=== PATIENT | male | born 1990 | race Caucasian/White ===

== ENCOUNTER 2020-01-02 10:04 | Emergency (ER) | payer BC, SELFPAY ==
[2020-01-02 10:18] VITALS: BP 156/103; PULSE 80; RESP 16; TEMP 36.8; O2SAT 98; BMI 27.1
[2020-01-02 11:02] LABS: Influenza A - CEPHEID Flu A NEGATIVE (NEGATIVE); Influenza B - CEPHEID Flu B NEGATIVE (NEGATIVE)
[2020-01-02 12:11] VITALS: BP 146/86; PULSE 82; RESP 18; O2SAT 98
--- NOTE | 2020-01-02 23:48 | ED.URI ---
HPI - URI/Sore Throat <JHONY Kirk - Last Filed: 01/02/20 23:59> General Chief Complaint: Upper Respiratory Symptoms Stated Complaint: cough fever Time Seen by Provider: 01/02/20 11:25 Source: patient Mode of arrival: Ambulatory Limitations: no limitations History of Present Illness HPI Narrative: This is a 29-year-old male, nonsmoker, who presents to ED with chief complain of 1 week duration of cough, feeling fatigued, runny nose but reports his symptoms are actually getting better. Patient reports now he has frequent but nonproductive cough which was from moist a few days ago. He denies fever, chills, short of breath, chest pain, nausea or vomiting. Patient had taken Tylenol at home for sore throat. Patient denies chronic medical illnesses. 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 Patient states he had visited [place] but no known contact with a person with Covid virus. Related Data Previous Rx's Medication Instructions Recorded albuterol sulfate 2 inhalation INHALATION Q4H PRN #1 01/02/20 each prednisone 40 mg PO DAILY #10 tab 01/02/20 Allergies Allergy/AdvReac Type Severity Reaction Status Date / Time No Known Drug Allergies Allergy Verified 01/02/20 10:18 Review of Systems <JHONY Kirk - Last Filed: 01/02/20 23:59> Review of Systems Narrative: General: Denies fever, chills, (+) fatigue, malaise, sweats. HEENT: Denies sinus pain, ear pain, (+) sore throat, difficulty swallowing, (+) rhinorrhea, dizziness. Respiratory: See HPI Cardiovascular: Denies chest pain, palpitations, orthopnea, edema. Gastrointestinal: Denies nausea, vomiting, abdominal pain, diarrhea, constipation, melena. : Denies dysuria, frequency, incontinence, hematuria, urinary retention. Musculoskeletal: Denies weakness, joint pain or bony pain. Skin: Denies rash, skin lesions, or other. Neurologic: Denies weakness, headache, numbness, change in speech, confusion, seizures, incoordination. Psychiatric: No concerning psychosocial issues. 12-point review of systems is negative except for those stated above. Patient History <JHONY Kirk - Last Filed: 01/02/20 23:59> Medical History No significant past medical history (Acute) Surgical History No pertinent past surgical history (Acute) Social History Smoking Status: Never smoker Smoking Status: Never smoker Exam <JHONY Kirk - Last Filed: 01/02/20 23:59> Narrative Exam Narrative: GEN: Alert, oriented x 3, well appearing and nourished, and in no acute distress. Head: Normal cephalic, atraumatic. No scalp or temporal tenderness, palpable mass or rash. EYES: Pupils are equal, round, and reactive to light and accommodation. Extraocular muscles are intact bilaterally. There is no subconjunctival hemorrhage, exudate and sclera non-icteric. ENT: Bilateral auditory canals and tympanic membranes clear. Hearing grossly intact. Nose without bleeding, purulent discharge or deviation. Turbinates swollen, erythema with clear nasal discharge. Facial sinuses nontender to palpate. Mucous membrane moist, no mucosal lesion. Throat without erythema, tonsillar hypertrophy or exudate. Uvula in midline, airway patent. Neck: Trachea in midline. No JVD, non-tender without lymphadenopathy. No masses or thyroid megaly. Supple, non-tender and no meningeal signs. CARDIAC: Normal regular rate and rhythm without murmurs, gallops, or rubs. No chest wall tenderness. No peripheral edema, cyanosis or pallor. Capillary refill is less than 2 seconds. RESPIRATORY: Lungs are clear to auscultate bilaterally. Frequent nonproductive cough appreciated during exam. No wheezes, rales, or rhonchi. No stridor, respiratory distress, increase work of breathing, or accessary muscle used. ABD: Abdomen soft, nontender and non-distended. No guarding or rebound tenderness to palpate. Bowel sounds are normal in all 4 quadrants. There is no palpable masses or organomegaly. EXT: Full painless ROM of all extremities with no loss of sensation, strength, effusion or edema. SKIN: Warm, dry, normal color for patient. No erythema, lesions or rash over visible areas. BACK: Nontender without deformity or crepitance. No flank tenderness. NEUROLOGICAL: Alert and oriented to place, time and person. Sensation and motor function intact bilaterally. No facial droops, dysphasia. PSYCHIATRIC: Good judgement and reason, without hallucinations, abnormal affect or abnormal behaviors during the examination. Initial Vital Signs Initial Vital Signs: Vital Signs Temperature 98.3 F 01/02/20 10:18 Pulse Rate 80 01/02/20 10:18 Respiratory Rate 16 01/02/20 10:18 Blood Pressure 156/103 H 01/02/20 10:18 Pulse Oximetry 98 01/02/20 10:18 <Kaiden Person MD - Last Filed: 01/04/20 08:30> Initial Vital Signs Initial Vital Signs: Vital Signs Temperature 98.3 F 01/02/20 10:18 Pulse Rate 80 01/02/20 10:18 Respiratory Rate 16 01/02/20 10:18 Blood Pressure 156/103 H 01/02/20 10:18 Pulse Oximetry 98 01/02/20 10:18 Scores <JHONY Kirk - Last Filed: 01/02/20 23:59> GCS [place] coma scale eye opening: Spontaneous Tresa coma scale verbal response: Orientated Tresa coma scale motor response: Obey commands Tresa coma scale total score: 15 MDM - URI/Sore Throat <JHONY Kirk - Last Filed: 01/02/20 23:59> Differential Diagnosis Differential diagnosis: Likely upper respiratory infection, viral infection, bronchitis, influenza and pharyngitis Medical Records Attestation: I reviewed the patient's medical records. Lab Data Attestation: I reviewed the patient's lab results. Labs: Lab Results 01/02/20 Range/Units 10:15 Influenza A (RT-PCR) Flu a negative (NEGATIVE) Influenza B (RT-PCR) Flu b negative (NEGATIVE) Point of Care Testing Rapid Strep A Negative MDM Narrative Medical decision making narrative: This is a 29-year-old male who presents to ED with upper respiratory symptoms for 1 week which actually has been improving since the onset. Patient reports frequent nonproductive cough, fatigue, and rhinorrhea. Flu and strep throat tests were negative. Lung sounds are clear to auscultate without wheezing, crackles. Patient is afebrile with stable vital signs with O2 sat of 98% in room air. There is no increased work of breathing appreciated. Patient discharged to home with albuterol inhaler to use as needed for frequent coughing, chest tightness, wheezing and 5 day course of steroids for coughing. Patient also advised to use [id number] Mucinex for cold symptoms. Advised to hydrate well and rest. Good hand/cough hygiene to prevent transmitting illness to others. Patient provided with work off notes. Return precautions were discussed with the patient and patient verbalized understanding and agreement with the treatment plan. <Kaiden Person MD - Last Filed: 01/04/20 08:30> Lab Data Labs: Lab Results 01/02/20 Range/Units 10:15 Influenza A (RT-PCR) Flu a negative (NEGATIVE) Influenza B (RT-PCR) Flu b negative (NEGATIVE) Point of Care Testing Rapid Strep A Negative Discharge Plan Departure Patient Disposition: Home Clinical Impression: Bronchitis Upper respiratory infection Qualifiers: URI type: unspecified URI Qualified Code(s): J06.9 - Acute upper respiratory infection, unspecified Discharge Date/Time: 01/02/20 12:12 Instructions: DI for Acute Bronchitis Activity Restrictions/Additional Instructions: You have been diagnosed with [bronchitis and upper respiratory infection. Influenza test and strep infection tests were negative today. Criteria for al virus infection ease very low since you have not been close contact with a person who has positive coronavirus infection, you do not have fever, no short of breath, have chronic medical condition.]. What to do: *Take your medications as directed. Albuterol inhaler for cough, short of breath, or wheezing. Please take prednisone, steroids, to help with her cough symptoms. Please take Mucinex DM for your symptoms. You can take [id number] Tylenol for discomfort and fever as needed. Please continue to use good hand hygiene, acute distance at least for 6 ft away from people, frequent hand washing. This medication have [facility] in [place]. *Follow up with your primary care provider in 2-3 days, call for an appointment. Let them know you were seen in the ED and that we asked you to be seen in follow up. *Return to ED if you have any new, worsening, or concerning symptoms, such as [chest pain, breathing difficulty, short of breath, high fever, unable to tolerate fluids or any acute concerns]. Prescriptions: New albuterol sulfate 90 mcg/actuation aerosol powdr breath activated 2 inhalation INHALATION Q4H PRN (Reason: cough, shortness of breath, wheezing) Qty: 1 RF: 0 prednisone 20 mg tablet 40 mg PO DAILY Qty: 10 RF: 0 Stand Alone Forms: Work Release Note
== END 2020-01-02 12:12 | disposition home or self-care (01) ==
LOC: ED 12:05
PROVIDERS: Emergency Medicine; Emergency Provider Nurse Practitioner Family
DX: J40 Bronchitis, not specified as acute or chronic (principal); J06.9 Acute upper respiratory infection, unspecified
CPT/HCPCS: 87502; 87880; 99281; 99282